=== PATIENT | female | born 1960 ===

== ENCOUNTER → 2017-09-19 | Outpatient (CLI) | payer OTHER ==
[~2017-09-19] MED LIST: SYNTHROID75 MCG
== END | disposition home or self-care (01) ==
LOC: NUCLEAR 07:00
DX: I25.10 Atherosclerotic heart disease of native coronary artery without angina pectoris (principal); E03.8 Other specified hypothyroidism
CPT/HCPCS: 78452; 93017; A9500

== ENCOUNTER 2017-11-25 19:47 | Emergency (ER) | payer OTHER ==
[~2017-11-25] VITALS: Ht 170.2 cm; Wt 65.8 kg
[2017-11-25] MEDS ORDERED: CRESTOR10 MG (20:02)
== END 2017-11-25 22:59 | disposition home or self-care (01) ==
LOC: ER 19:47
DX: J11.1 Influenza due to unidentified influenza virus with other respiratory manifestations (principal); J32.8 Other chronic sinusitis